=== PATIENT | female | born 1995 | race American Indian/Alaskan Native ===

== ENCOUNTER 2020-09-07 08:44 | Emergency (ER) | payer MEDICAID, OTHER ==
[2020-09-07] MEDS ORDERED: IPRATROPIUM/ALBUTEROL SULFATE 3 ML AMPUL.NEB IH ONE (08:56)
[2020-09-07] MEDS ORDERED: predniSONE 20 MG TAB PO ONE (08:56)
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
[2020-09-07 10:26] VITALS: BP 156/108
== END 2020-09-07 10:26 | disposition home or self-care (01) ==
LOC: ED 08:44
DX: J06.9 Acute upper respiratory infection, unspecified (principal); J45.909 Unspecified asthma, uncomplicated; I10 Essential (primary) hypertension; Z98.890 Other specified postprocedural states; Z79.899 Other long term (current) drug therapy
CPT/HCPCS: 94640; 99282; J7512; 94644

== ENCOUNTER 2022-04-14 15:36 | Emergency (ER) | payer MEDICAID, OTHER ==
[2022-04-14] MEDS ORDERED: IBUPROFEN 600 MG TAB PO ONE (21:02)
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
[2022-04-14 22:54] VITALS: BP 166/102
== END 2022-04-14 22:54 | disposition home or self-care (01) ==
LOC: ED 15:36
DX: S00.31XA Abrasion of nose, initial encounter (principal); L08.9 Local infection of the skin and subcutaneous tissue, unspecified; X58.XXXA Exposure to other specified factors, initial encounter; Y93.89 Activity, other specified; Y92.89 Other specified places as the place of occurrence of the external cause; Y99.8 Other external cause status; I10 Essential (primary) hypertension; R04.0 Epistaxis
CPT/HCPCS: 99282

== ENCOUNTER 2022-04-16 02:59 | Emergency (ER) | payer MEDICAID ==
[2022-04-16] MEDS ORDERED: cloNIDine 0.1 MG TAB PO ONE (03:26)
[2022-04-16 03:30] VITALS: BP 195/123
== END 2022-04-18 10:04 | disposition left against medical advice (07) ==
LOC: ED 02:59
DX: R51.9 Headache, unspecified (principal); Z53.21 Procedure and treatment not carried out due to patient leaving prior to being seen by health care provider

== ENCOUNTER 2022-05-21 20:15 | Emergency (ER) | payer MEDICAID ==
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
[2022-05-22] MEDS ORDERED: TETRACAINE 0.5% OPHTH SOLN 4ML OU ONE (02:24)
[2022-05-22] MEDS ORDERED: FLUORESCEIN 1 MG STRIP OP STA (02:24)
[2022-05-22] MEDS ORDERED: MORPHINE 4 MG/1 ML INJ IV STA (02:24)
[2022-05-22] MEDS ORDERED: KETOROLAC 30 MG/1 ML INJ IV STA (04:47)
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
[2022-05-22 06:06] VITALS: BP 145/96
== END 2022-05-22 06:06 | disposition home or self-care (01) ==
LOC: ED 20:15
DX: S00.83XA Contusion of other part of head, initial encounter (principal); N30.80 Other cystitis without hematuria; I10 Essential (primary) hypertension; X58.XXXA Exposure to other specified factors, initial encounter; Y93.89 Activity, other specified; Y92.89 Other specified places as the place of occurrence of the external cause; Y99.8 Other external cause status
CPT/HCPCS: 70486; 96365; 96375; 99284; J1885; J2270; J7502; 99283